=== PATIENT | female | born 1965 | race Caucasian/White ===

== ENCOUNTER 2019-06-07 00:37 | Emergency (ER) | payer OTHER ==
[~2019-06-07] VITALS: Ht 149.9 cm; Wt 72.7 kg
[2019-06-07] MEDS ORDERED: AMLO5TAB9 PO (00:46)
[2019-06-07] MEDS ORDERED: BENA5TAB26 PO (00:46)
[2019-06-07 02:43] VITALS: BP 177/91
[2019-06-07] MEDS ORDERED: KETOROLAC TROMETHAMINE 60 MG/2 ML VIAL IM ONE (03:15)
== END 2019-06-07 03:32 | disposition home or self-care (01) ==
LOC: EMS 00:37
DX: S40.012A Contusion of left shoulder, initial encounter (principal); J45.909 Unspecified asthma, uncomplicated; I10 Essential (primary) hypertension; W06.XXXA Fall from bed, initial encounter; Y93.89 Activity, other specified; Y92.89 Other specified places as the place of occurrence of the external cause; Y99.8 Other external cause status
CPT/HCPCS: 73030; 96372; 99283; J1885

== ENCOUNTER 2021-12-09 16:45 | Emergency (ER) | payer OTHER ==
[~2021-12-09] VITALS: Ht 149.9 cm; Wt 72.0 kg
[~2021-12-09 16:45] MED LIST: AMLO-257 PO; BENA5TAB26 PO
[2021-12-09] MEDS ORDERED: PERTUSS(ACELL),DIPH,TET VAC/PF 0.5 ML SYRINGE IM. ONE (18:00)
[2021-12-09] MEDS ORDERED: BUPIVACAINE HCL/PF 0.5% 10 ML VIAL PERC ONE (18:00)
[2021-12-09 19:20] VITALS: BP 145/92
== END 2021-12-09 19:21 | disposition home or self-care (01) ==
LOC: EMS 16:45
DX: S61.511A Laceration without foreign body of right wrist, initial encounter (principal); I10 Essential (primary) hypertension; E11.9 Type 2 diabetes mellitus without complications; E78.00 Pure hypercholesterolemia, unspecified; Z79.899 Other long term (current) drug therapy; W45.8XXA Other foreign body or object entering through skin, initial encounter; Y93.89 Activity, other specified; Y92.89 Other specified places as the place of occurrence of the external cause; Y99.8 Other external cause status
CPT/HCPCS: 12001; 73110; 90471; 90715; 99283; J3490

== ENCOUNTER 2022-04-30 15:41 | Emergency (ER) | payer OTHER ==
[~2022-04-30] VITALS: Ht 152.4 cm; Wt 65.9 kg
[2022-04-30 16:01] LABS: GLUCOMETER DEV NAME(LOC) ERT.5; GLUCOSE,POINT OF CARE 131 MG/DL (70-110)
[2022-04-30] MEDS ORDERED: METF-1211 PO (16:47)
[2022-04-30] MEDS ORDERED: BENA1TAB77 PO (18:35)
[2022-04-30] MEDS ORDERED: ATOR20TA65 PO (18:35)
[2022-04-30 21:00] VITALS: BP 128/71
== END 2022-04-30 21:08 | disposition home or self-care (01) ==
LOC: EMS 15:41
DX: F43.0 Acute stress reaction (principal); I10 Essential (primary) hypertension; E11.9 Type 2 diabetes mellitus without complications; E78.00 Pure hypercholesterolemia, unspecified
CPT/HCPCS: 82962; 99282; 99283